=== PATIENT | male | born 1955 | race Caucasian/White ===

== ENCOUNTER → 2020-12-18 | Outpatient (CLI) | payer MEDICARE ==
[2015-03-18 11:01] VITALS: BP 118/79
[~2020-12-18] MED LIST: ALBU2.5V8 INH; ASPI-482 PO; Albuterol Sulfate NEB; METO-239 PO; MONT10TA49 PO; PRED-220 PO; ROFL500T7 PO; TIOT18CA IH; TIOT4MIS2 IH
--- NOTE | 2020-12-18 15:13 | KCIC ---
EXAM: Chest, 2 views. HISTORY: Dyspnea. COMPARISON: 08/09/2015 FINDINGS: 2 views of the chest are obtained. There are chronic appearing interstitial markings. There is no consolidation, pleural effusion or pneumothorax. There is lingular scarring. The heart is norm al in size. IMPRESSION: Chronic appearing interstitial markings. There is no consolidated infiltrate. Electronically signed by: Mariaelena Rand MD (12/18/2020 3:10 PM) [id number]
== END ==
LOC: KCIC 14:47
PROVIDERS: ATTEND Internal Medicine Critical Care Medicine
DX: J98.4 Other disorders of lung (principal); R06.00 Dyspnea, unspecified
CPT/HCPCS: 71046

== ENCOUNTER → 2021-08-29 | Outpatient (CLI) | payer MEDICARE, BC ==
[2015-03-18 11:01] VITALS: BP 118/79
[2021-08-29 12:34] LABS: BASO # 0.1 x10^3/uL (0.0-0.2); BASO % 1 % (0-3); EOS # 1.1 x10^3/uL (0.0-0.7); EOS % 11 % (0-3); HEMATOCRIT 48.4 % (39.0-53.0); HEMOGLOBIN 15.9 g/dL (13.0-17.5); LYMPH # 1.6 x10^3/uL (1.0-4.8); LYMPH % 16 % (24-48); MEAN CORPUSCULAR HEMOGLOBIN 29 pg (25-35); MEAN CORPUSCULAR HGB CONC 33 g/dL (31-37); MEAN CORPUSCULAR VOLUME 87 fL (79-100); MONO # 0.7 x10^3/uL (0.0-1.1); MONO % 7 % (0-9); NEUT # 6.5 x10^3/uL (1.8-7.7); NEUT % 65 % (31-73); PLATELET COUNT 301 x10^3/uL (140-400); RED BLOOD COUNT 5.58 x10^6/uL (4.30-5.70); RED CELL DISTRIBUTION WIDTH 14.1 % (11.5-14.5); WHITE BLOOD COUNT 10.1 x10^3/uL (4.0-11.0)
== END ==
LOC: LAB 12:03
PROVIDERS: ATTEND Internal Medicine Critical Care Medicine
DX: J45.909 Unspecified asthma, uncomplicated (principal)
CPT/HCPCS: 36415; 85025